=== PATIENT | female | born 2005 | race Caucasian/White ===

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

== ENCOUNTER 2025-03-15 12:54 | Day surgery (SDC) | payer OTHER, SELFPAY ==
[2025-03-08 10:43] VITALS: BMI 43.0
[2025-03-15] VITALS (18 sets, daily range): BP systolic 93–140; BP diastolic 48–83; PULSE 16–75; RESP 15–97; TEMP 35.6–36.6; O2SAT 89–100; BMI 41.1
--- NOTE | 2025-03-15 | PATH_ITS ---
[facility] Accession Number: [id number] No. of containers..01 Tissue . 01 Material submitted: . uterus - UTERUS, CERVIX, BILATERAL TUBES . 01 Diagnosis: UTERUS, CERVIX, AND BILATERAL FALLOPIAN TUBES, HYSTERECTOMY AND BILATERAL SALPINGECTOMY: Unremarkable cervix; no dysplasia. Inactive endoemtrium; no endometrioid intraepithelial neoplasia. Complete cross-section of bilateral fimbriated fallopian tube with benign paratubal cysts. No evidence of malignancy. [facility] 03/19/2025 1037 Local . 01 Electronically signed: . Lyn Archer MD, Pathologist NPI- [id number] . 01 Gross description: . The specimen is received in formalin, labeled with two patient identifiers and cervix, uterus, bilateral tubes, and consists of a uterus with attached cervix and attached bilateral fimbriated fallopian tubes. The uterine corpus measures 7.2 x 4.5 x 3.1 cm, 59 g, and has a smooth, spears-purple, glistening serosal surface. The attached cervix measures 2.5 x 2.5 x 1.0 cm and has a smooth, white, slightly purple, glistening endocervical mucosa with a 0.6 cm slit-like patent os. The uterus is bivalve to show a spears, trabeculated endocervical canal free of exophytic lesions. The myometrium is spears-white, measures up to 1.2 cm in thickness and is homogenous and otherwise unremarkable. There is a 2.1 x 1.2 cm, spears-red, focally hemorrhagic, finely granular, triangular endometrial lining which averages 0.2 cm in thickness. No exophytic lesions or masses are appreciated. The right attached fimbriated fallopian tube measures 4.5 cm in length and ranges from 0.3 cm up to 0.5 cm in diameter. The serosal surface is spears-purple with a 0.3 cm in greatest dimension paratubal, simple, unilocular, serous fluid-filled cyst. Sectioning the tube shows an unremarkable 0.3 cm stellate lumen. The left fimbriated fallopian tube measures 4.8 cm in length and ranges from 0.3 cm up to 0.4 cm in diameter and has a spears-purple unremarkable serosal surface. Sectioning shows a 0.3 cm stellate lumen. Entry Level Account Representative sections are submitted as follows: A1: Posterior cervix. A2: Anterior cervix. A3: Full-thickness endomyometrium (posterior). A4: Full-thickness endomyometrium (anterior). A5: Right fimbriated fallopian tube to include entire fimbriated end and paratubal cyst. A6: Left fimbriated fallopian tube to include entire fimbriated end. ([id number]) /FRR 03/17/2025 1522 Local . 01 Pathologist provided ICD-10: N92.4, N94.4 . 01 CPT . 567380 Specimen Comment: A courtesy copy of this report has been sent to [facility] Pathology Performed at: [address] [address], [place], [place] [id number] MD Bijan Mead MD Phone: [phone]
--- NOTE | 2025-03-15 13:46 | PM.PREOP ---
Pre-operative Note Interval Note History & Physical reviewed/Exam performed by Physician: Yes Changes to H&P: No H&P completed within 30 days and has changed as indicated here:: see H&P from 03/06/25
[2025-03-15] MEDS: LACTATED RINGERS 1,000 ML 42 ML IV ×2 (13:48→16:47)
--- NOTE | 2025-03-15 14:34 | SUR.OPER ---
Lithotomy on padded OR bed. The Pinery Pad Positioner under torso. Head on pillow, arms padded and tucked at sides. Legs secured in padded yellow fins stirrups. surgeon helped and approved positioning
[2025-03-15] MEDS: BUPIVACAINE 0.25% (PF) VIAL 30 ML INJ (14:43)
[2025-03-15] MEDS: CEFAZOLIN 2 GM/100 ML PREMIX 100 ML IV (14:44)
--- NOTE | 2025-03-15 16:08 | PM.OP.1 ---
Operative Date/Time/Diagnoses Date of procedure: 03/15/25 Time of procedure: 15:00 Pre-op diagnosis: 1. Menorrhagia 2. Dysmenorrhea Post-op diagnosis: same Procedure & Clinicians Procedure: Robotic-assisted total laparoscopic hysterectomy Bilateral salpingectomy Same procedure(s) as scheduled: Yes Indications: 19yo F with history of dysmenorrhea and menorrhagia, refractory to other medical treatments, who desired definitive management. She has no desire for childbearing in the future. She was extensively counseled about the procedure risks, including risk of regret, and strongly desired to proceed with surgery. Surgeon: Gillina Mckeon Click Yes if Unassisted: Yes Anesthesia Type: General Operative Notes Findings: Normal appearing uterus, bilateral fallopian tubes, and bilateral ovaries. Normal appearing liver edge and gallbladder. Normal appendix. Closure Type: primary Specimen(s): other (uterus, cervix, bilateral fallopian tubes) Applied: catheter Estimated Blood Loss (mL): 5 Blood products transfused: none Procedure in detail: The risks, benefits, indications and alternatives of the procedure were reviewed with the patient and informed consent was obtained. The pt was taken to the operating room where general anesthesia was obtained without difficulty. The pt was then placed in the low lithotomy position using Vishal Stirrups and arms were tucked with padding. Sequential compression devices were placed bilaterally for VTE prophylaxis. She was then prepped and draped in the sterile fashion and a Singh catheter was placed. She received 2g Ancef for surgical prophylaxis. A V-care uterine manipulator was placed through the cervix into the uterus for uterine manipulation. Attention was then turned to the patient?s abdomen were an 8mm skin incision was made in the superior aspect of the umbilicus after injecting 0.25% Marcaine. An 8mm trocar and sleeve were then carefully introduced into the peritoneal cavity under direct visualization at a 90-degree angle while tenting up the abdominal wall. Intra-peritoneal placement was confirmed under direct visualization with the laparoscope with entry pressure <5 mmHg. A pneumoperitoneum was obtained with several liters of CO2 gas, maximum pressure of 15 mmHg. Upon entry into the peritoneal cavity, structures immediately below the incision were inspected and found to be free of injury. A survey of the patient's abdomen and pelvis was notable for the above findings. Four additional 8mm port sites were placed linearly across the abdomen in line with the umbilicus, under direct laparoscopic guidance. The Happy Metrixi 5 surgical robot was then docked and instruments inserted under direct visualization. Control of the robot was then turned over to the console. The left fallopian tube was grasped and ligated from the mesosalpinx. The utero-ovarian and round ligaments were then clamped, cut, and ligated. The anterior broad ligament was then incised along the bladder reflection and the bladder was dissected off the lower uterine segment until endopelvic fascia was visualized. The uterine artery was then identified, skeletonized, and ligated on the left. The uterosacral ligament and cardinal ligament were transected on the left. Attention was then directed to the right side, where the same procedure was done to clamp, cut, and ligate the right fallopian tube and right side of the uterus. The anterior colpotomy was then made using monopolar scissors and continued circumferentially inferior to the cervix using the colpotomy ring as a guide. The entire cervix and uterus was then successfully amputated and delivered through the vagina. The 0 Stratafix suture was then introduced into the abdominal cavity, and the vaginal cuff was then closed robotically with the barbed suture in a running fashion. The suture needle was removed via the lateral port under direct visualization. The pelvis was then irrigated and suctioned. Excellent hemostasis was noted. The surgical robot was then undocked, and the pneumoperitoneum was released. The ports were then removed, and the skin incisions were reapproximated using 4-0 monocryl suture in a subcuticular fashion and covered with Dermabond. The singh catheter was left in place. At the completion of the case the sponge and needle counts were correct x 2, and all instruments were confirmed to be removed from the vagina. The patient was taken to the PACU in stable condition. Complications: none Post-operative Condition: stable Disposition: PACU Plan for aftercare: Plan for discharge home in the morning.
[2025-03-15] MEDS: OXYCODONE IR 5 MG TABLET PO (16:41)
[2025-03-15] MEDS: ONDANSETRON 4 MG/2 ML INJ IV (16:41)
[2025-03-15] MEDS: HYDROMORPHONE 1 MG INJ IV (16:41)
[2025-03-15] MEDS: ACETAMINOPHEN 325 MG TABLET 650 MG PO (18:11)
[2025-03-15] MEDS: KETOROLAC 30 MG/ML VIAL IV (18:12)
[2025-03-16] MEDS: KETOROLAC 30 MG/ML VIAL IV ×2 (00:40→06:45)
[2025-03-16] MEDS: ACETAMINOPHEN 325 MG TABLET 650 MG PO ×2 (00:40→06:47)
[2025-03-16 03:00] VITALS: BP 124/72; PULSE 68; RESP 18; TEMP 36.1; O2SAT 99
[2025-03-16 07:53] VITALS: BP 131/76; PULSE 77; RESP 15; TEMP 36.1; O2SAT 98
--- NOTE | 2025-03-16 08:02 | P.DS_ITS ---
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 By postop day #1, she was ambulating, tolerating regular diet, voiding spontaneously, with no vaginal bleeding. Thus she was discharged to home on postop day #1. Status at Discharge Cognitive/behavioral status at discharge: oriented Functional status at discharge: independent ambulation Overall status at discharge: patient is progressing back to baseline Time Spent with Patient Time spent: Less than 30 minutes Exam Vital Signs (past 8 hours): - 03/16/25 03:00 03/16/25 07:53 Temperature 96.9 F L 97.0 F L Pulse Rate 68 77 Respiratory Rate 18 15 Blood Pressure 124/72 131/76 Pulse Oximetry 99 98 Oxygen Flow Rate 0 Oxygen Delivery Method Room Air Oxygen Flow Rate 0 Const General: comfortable and No acute distress Resp Effort & Inspection: normal respiratory effort and able to speak in complete sentences GI Palpation: soft and No tender Skin Other: 5 laparoscopic incisions intact with dermabond in place Neuro Cognition: normal cognition Speech: speech normal Psych Mood: congruent mood Affect: normal affect Objective Labs Labs: Laboratory Results - last 24 hr 03/15/25 13:44 POC Whole Bld Glucose 85 PFSH Medical History (Updated 03/14/25 @ 12:01 by Heidi Jeffrey RN) Anxiety Transgender Obesity, Class III, BMI 40-49.9 (morbid obesity) Surgical History (Updated 02/05/25 @ 14:48 by Gillian Mckeon DO) No pertinent past surgical history Family History (Updated 11/20/21 @ 20:28 by Jocelyne Gill) Father Diabetes mellitus Hypertension Mental health problem Mother Mental health problem Social History household members: family alcohol intake: never substance use type: does not use Discharge Assessment & Plan Assessment and Plan Plan of Treatment: Follow-up for postop appointments as scheduled. Discharge Plan Discharge Plan Patient Disposition: Home Provider Discharge Comment: Take ibuprofen 600 mg every 6 hours and acetaminophen 650 mg every 6 hours as needed for pain. Use oxycodone 5 mg every 4 hours as needed for severe pain. Avoid lifting greater than 20 lb for at least 4 weeks. Avoid placing anything in the vagina for at least 6 weeks. 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 Skin/Wound/Dressing Care Skin care: You may shower normally. Report to your healthcare provider any signs of infection, such as:: chills, fever, increased pain, unusual drainage and unusual redness Dressing: The surgical glue on your incisions will peel off in about 1 week. Visit Report/Discharge Packet Instructions: DI for Hysterectomy, DI for Laparoscopy, DI for Prescription Opioid Use Stand Alone Forms: Patient Portal/API Print Language: Yakut Discharge Data Primary Care Provider: Lolly Rebollar Attending Provider: Gillian Mckeon PROFEE Charge Codes Discharge inpatient/observation: [id number]
[2025-03-16] MEDS: DOCUSATE 100 MG CAPSULE PO (08:06)
--- NOTE | 2025-03-16 08:24 | PC.NURSE ---
DISCHARGE PAPERWORK DISCUSSED. PACKET GIVEN TO PATIENT. SIGNATURE PAGE PLACED IN CHART. IV'S D/C'D.
--- NOTE | 2025-03-16 08:47 | CM.DANOTE ---
Initial DCP Assessment Note Pt is a 19 yo born female transgender male , resident of [place], s/p lap hysterectomy. PCP: SHARMIN Hollingsworth Payer: David Osborne Reviewed chart, patient lives w/family, independently, and plan is for return home today with close outpatient follow up. No barriers identified at this time to patient's safe discharge home w/family to assist; close outpatient f/u recommended. Social work team will plan to follow clinical course closely in case any DC needs or concerns arise. 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 No Prior Living House Arrangements Household Members family Independent with ADL Yes 's Is patient alert and Yes oriented? Comment Independent Comment Home w/family Barriers to No Discharge Discharge Plan Home Transportation Family Arrangement Referrals Initiated None needed
== END 2025-03-16 08:30 | disposition home or self-care (01) ==
LOC: OR 16:33 → AC 16:34
PROVIDERS: Referring Provider Student in an Organized Health Care Education/Training Program; Visit Provider Student in an Organized Health Care Education/Training Program
PROC: 0UT94ZZ Resection of Uterus, Percutaneous Endoscopic Approach (ICD-10-PCS; CPT 58571; principal; 2025-03-15 13:45)
DX: N94.4 Primary dysmenorrhea (principal); N92.0 Excessive and frequent menstruation with regular cycle; N83.8 Other noninflammatory disorders of ovary, fallopian tube and broad ligament
CPT/HCPCS: 58571; 81025; 82962; J0690; J1100; J1171; J1885; J2250; J2405; J2704; J3010